=== PATIENT | female | born 1970 | race African-American/Black ===

== ENCOUNTER 2019-04-11 07:36 | Emergency (ER) | payer OTHER ==
[~2019-04-11] VITALS: Ht 157.5 cm; Wt 89.8 kg
[2019-04-11 07:36] VITALS: BP 110/75
[2019-04-11] MEDS ORDERED: TESSALON PERLE100 MG PO (07:47)
[2019-04-11] MEDS ORDERED: BREO ELLIPTA 11 EACH INH (07:47)
[2019-04-11] MEDS ORDERED: PREDNISONE 10 M10 MG PO (07:48)
[2019-04-11] MEDS ORDERED: NORCO 5-325 TA1 EAC1 PO (08:41)
== END 2019-04-11 09:05 | disposition home or self-care (01) ==
LOC: ER 07:36
DX: S30.0XXA Contusion of lower back and pelvis, initial encounter (principal); Z90.49 Acquired absence of other specified parts of digestive tract; Z88.6 Allergy status to analgesic agent; Z88.0 Allergy status to penicillin; W18.09XA Striking against other object with subsequent fall, initial encounter; Y93.89 Activity, other specified; Y92.121 Bathroom in nursing home as the place of occurrence of the external cause; Y99.8 Other external cause status

== ENCOUNTER 2019-05-02 09:52 | Emergency (ER) | payer OTHER ==
[~2019-05-02] VITALS: Ht 154.9 cm; Wt 89.8 kg
[~2019-05-02 09:52] MED LIST: BREO ELLIPTA 11 EACH INH; NORCO 5-325 TA1 EAC1 PO; PREDNISONE 10 M10 MG PO; TESSALON PERLE100 MG PO
[2019-05-02 09:55] VITALS: BP 126/90
[2019-05-02] MEDS ORDERED: IBUPROFEN 600600 M1 PO (11:21)
== END 2019-05-02 11:31 | disposition home or self-care (01) ==
LOC: ER 09:52
DX: S50.11XA Contusion of right forearm, initial encounter (principal); J44.9 Chronic obstructive pulmonary disease, unspecified; Z88.6 Allergy status to analgesic agent; Z88.5 Allergy status to narcotic agent; Z88.0 Allergy status to penicillin; Z90.49 Acquired absence of other specified parts of digestive tract; Y04.2XXA Assault by strike against or bumped into by another person, initial encounter; Y92.89 Other specified places as the place of occurrence of the external cause; Y93.89 Activity, other specified; Y99.8 Other external cause status